=== PATIENT | male | born 1960 | race Caucasian/White ===

== ENCOUNTER → 2017-09-23 | Outpatient (CLI) | payer OTHER ==
--- NOTE | 2017-09-23 15:42 | CONS ---
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 The patient has lived in [place], [place], [place] and [place]. He is currently located an [place] where he is going to stay as his home. His diagnosis of obstructive sleep apnea was established in [place] and the patient was diagnosed having severe LUCIANA and he was given CPAP treatment which he has been utilizing since 2009, utilizing a nasal pillow. His treatment has not been effective recently. He has been waking up tired with headaches and he has gained around 25 to 30 pounds since his diagnosis. He is coming in for reevaluation and is very much interested in obtaining a new CPAP machine. He is also having some occasional dizziness. He is having occasional palpitation and he is seeing a front office supervisor, Dr. Cuenca and he was told to have some enlargement in the right side of the cardiac structures. For that reason, there was a concern of suboptimal treatment of his obstructive sleep apnea and the patient is coming in for a reevaluation. He typically goes to bed around 10 pm, wakes up at 5:30 a.m. in the morning. He snores, he stops breathing while off treatment. He is averaging around 6 to 8 hours of sleep per night. PAST MEDICAL HISTORY: Obstructive sleep apnea, reflux, chronic back pain and obesity. PAST SURGICAL HISTORY: Includes a ganglion cyst removal and tonsillectomy. DRUG ALLERGIES: SULFA OUTPATIENT MEDICATION: Includes omeprazole. SOCIAL HISTORY: Nonsmoker, no history of alcohol, no history of IV drugs. FAMILY HISTORY: Positive for obstructive sleep apnea in the mother and the brother. REVIEW OF SYSTEMS: A 12-point review of system was done. A 20 pounds weight gain. No fever, chills or night sweats. Good appetite. No chest pain. Occasional palpitations. No shortness of breath. Occasional dryness in the mouth. No anxiety or panic attacks. No heartburn as the patient is well treated with omeprazole. No restlessness in lower extremities. No sleepwalking or sleep talking. No anxiety, no depression. No change with memory and concentration. No dysuria or frequency or urgency. No nocturia. His BP is 134/74, pulse 86, respirations 16, temperature 97.9, saturation 97% on room air. Weight is 207, height is 5, 5 inches, BMI 34.4, neck size 16 inches. General appearance, calm comfortable, in no acute distress. Head is atraumatic, normocephalic. Neck is supple. Mallampati class 4. Large tongue, uvula is not seen. LUNGS: Clear to auscultation. HEART: Sounds regular rate and rhythm. Normal S1, S2. No S3, S4. No murmurs. ABDOMEN: Soft, nontender. No organomegaly. EXTREMITIES: No edema. No cyanosis or clubbing. Neurologically patient is alert and orient x3. There is no focal neurological deficits. PSYCHIATRIC: The patient has an appropriate mood and affect. IMPRESSION: 1. Obstructive sleep apnea with suboptimal treatment with CPAP. The patient is coming in for a reevaluation. Original diagnosis was established in [facility] [place]. Recently, the patient has been feeling more tired, fatigued and sleepy and he feels a treatment has been suboptimal. 2. Obesity with interval weight gain. Body mass index is 34. 3. Chronic back pain. PLAN: Will proceed with a split night study. This will be useful to reestablish the diagnosis and same time make appropriate make the appropriate adjustments on the CPAP machine and provide him the appropriate mask interface for successful treatment. Encourage weight loss. Implement good sleep hygiene measures. Will see me back in 30 to 90 days after obtaining his CPAP machine. MMODL / IJN: [id number] /
== END | disposition home or self-care (01) ==
LOC: SLEEP 13:16
PROVIDERS: ATTEND Internal Medicine Critical Care Medicine
DX: G47.33 Obstructive sleep apnea (adult) (pediatric) (principal); E66.9 Obesity, unspecified; G89.29 Other chronic pain; M54.9 Dorsalgia, unspecified; Z68.34 Body mass index [BMI] 34.0-34.9, adult; Z99.89 Dependence on other enabling machines and devices; Z98.890 Other specified postprocedural states; Z88.2 Allergy status to sulfonamides; Z79.899 Other long term (current) drug therapy
CPT/HCPCS: 99211